=== PATIENT | male | born 1945 | race Caucasian/White ===

== ENCOUNTER 2018-08-08 09:35 | Inpatient (IN) | payer MEDICARE, BC ==
[~2018-08-08] VITALS: Ht 177.8 cm; Wt 68.2 kg
--- NOTE | 2018-08-08 09:40 | NUR ---
RECEIVED A 72 Y/O MALE PT C/O SOB, PT CAME WITH EMS, PT IS ON OWN VENT CPAP, HAS A G-TUBE. PT IS ALERT OX3. UPON ARRIVAL 12 LEAD EKG DONE, CONNECETD TO ECG MONITOR,V/S TAKEN.SEEN BY MD , CODE SEPSIS INTIATED. BLOOD SAMPLES/ CX TAKEN.AND CXRAY DONE.
[2018-08-08] MEDS ORDERED: ACETAMINOPHEN ES 500 MG TABLET GT ONE (09:45)
[2018-08-08] MEDS ORDERED: IV NORMAL SALINE 1000 ML BAG IV ONE (09:45)
--- NOTE | 2018-08-08 09:48 | NUR ---
PT RECEIVED IN ER ON OWN VENT ON BIPAP, PT APPEARS COMFORTABLE, NO RESP. DISTRESS NOTED AT THIS TIME. WILL CONTINUE TO MONITOR.
--- NOTE | 2018-08-08 10:10 | NUR ---
PATIENT REFUSED FC, URINATED USING URINAL, URINE SAMPLE TAKEN.
[2018-08-08] MEDS ORDERED: ELIQUIS (10:11)
[2018-08-08] MEDS ORDERED: ROBINOL (10:11)
[2018-08-08] MEDS ORDERED: PARO25TA16 GT (10:11)
[2018-08-08] MEDS ORDERED: ATOR40TA GT (10:11)
[2018-08-08] MEDS ORDERED: ALLO300T2 GT (10:11)
[2018-08-08] MEDS ORDERED: LORA-259 GT (10:11)
[2018-08-08] MEDS ORDERED: ASPI81TA31 GT (10:11)
[2018-08-08] MEDS ORDERED: LISI10TA5 GT (10:11)
[2018-08-08] MEDS ORDERED: GUAI600T53 GT (10:11)
--- NOTE | 2018-08-08 10:12 | NUR ---
LIST OF MEDS FROM WHO WAS NOT SURE OF SOME MED DOSAGES =- WAITING FOR CAREGIVER INSTEAD.
[2018-08-08] MEDS ORDERED: ACETAMINOPHEN ES 500 MG TABLET ONE (10:17)
[2018-08-08 10:20] LABS: CARBON DIOXIDE 31 mmol/L (21-32); CHLORIDE 102 mmol/L (98-107); CREATININE 0.2 mg/dL (0.6-1.3); GLUCOSE 170 mg/dL (74-106); POTASSIUM 4.4 mmol/L (3.5-5.1); UREA NITROGEN, BLOOD 22 mg/dL (7-18)
[2018-08-08 10:27] LABS: PLATELET COUNT (AUTO) 188 K/uL (152-348); RED BLOOD CELL COUNT(AUTO) 4.63 MIL/uL (4.06-5.63)
[2018-08-08 10:33] LABS: ALANINE AMINOTRANSFERASE 87 U/L (16-63); ALKALINE PHOSPHATASE 249 U/L (50-136); ASPARTATE AMINOTRANSFERASE 37 U/L (15-37); BILIRUBIN,DIRECT 0.2 mg/dL (0.0-0.2); BILIRUBIN,TOTAL 0.6 mg/dL (0.2-1.0); TOTAL PROTEIN, SERUM 7.4 g/dL (6.4-8.2)
[2018-08-08] MEDS ORDERED: APIX2.5T PO (10:33)
[2018-08-08] MEDS ORDERED: FLUT9.9S16 NS (10:33)
[2018-08-08] MEDS ORDERED: GLYC1.5T4 GT (10:33)
[2018-08-08 10:35] LABS: BASOPHILS % (AUTO) 0.1 % (0.0-2.0); EOSINOPHILS % (AUTO) 0.2 % (0.0-7.0); HEMATOCRIT 45.4 % (36.7-47.1); HEMOGLOBIN 15.2 g/dL (12.5-16.3); LYMPHOCYTES # (AUTO) 1.5 K/uL (20.0-40.0); LYMPHOCYTES % (AUTO) 10.1 % (20.5-51.5); MEAN CORPUSCULAR HEMOGLOBIN 32.7 uug (23.8-33.4); MEAN CORPUSCULAR HGB CONC 33 g/dL (32.5-36.3); MONOCYTES # (AUTO) 0.4 K/uL (2.0-10.0); MONOCYTES % (AUTO) 2.9 % (0.0-11.0); NEUTROPHILS # (AUTO) 12.8 K/uL (1.8-8.9); NEUTROPHILS % (AUTO) 86.7 % (38.5-71.5); WHITE BLOOD COUNT (AUTO) 14.8 K/uL (3.6-10.2)
[2018-08-08 10:38] LABS: *BILIRUBIN,URIN NEGATIVE (NEGATIVE); *BLOOD, URINE 1+ (NEGATIVE); *CLARITY,URINE CLOUDY (CLEAR); *COLOR,URINE YELLOW (YELLOW); *KETONES,URINE NEGATIVE (NEGATIVE); *UROBILINOGEN,URINE 0.2 E.U./dl (NORMAL); LEUKOCYTE ESTERASE ,URINE 3+ (NEGATIVE); NITRITE, URINE POSITIVE (NEGATIVE); UGLUCOSE NEGATIVE (NEGATIVE)
[2018-08-08 10:45] LABS: WBC,URINE 50-80 /HPF (0-3)
[2018-08-08] MEDS ORDERED: SWABABLE VALVE TRANSFER SET EA MC ONE (10:52)
[2018-08-08] MEDS ORDERED: IV NORMAL SALINE 0 ML IV ONE (10:52)
[2018-08-08] MEDS ORDERED: IV NORMAL SALINE 250 ML IV ONE (10:53)
[2018-08-08 10:55] LABS: BACTERIA,URINE MODERATE /HPF (NONE SEEN)
[2018-08-08] MEDS ORDERED: IOHEXOL 350 100 ML INFUS..BTL ONE (10:57)
[2018-08-08 10:59] LABS: SQUAMOUS EPITHELIAL CELL,UR NONE SEEN /HPF (NONE SEEN)
--- NOTE | 2018-08-08 11:00 | NUR ---
CONSENT SIGNED FOR CT CHEST ANGIO, PT SENT DOWN TO RADILOGY AND BACK NO COMPLICATIONS, STARTED IV ABX.
[2018-08-08] MEDS ORDERED: CEFTRIAXONE 1 G in IV DEXTROSE 5% 50 ML IV ONE (11:15)
[2018-08-08] MEDS ORDERED: CEFTRIAXONE 1 G VIAL ONE (11:17)
[2018-08-08] MEDS ORDERED: MAGNESIUM HYDROXIDE 30 ML LIQUID UDC PO PRN (12:00)
[2018-08-08] MEDS ORDERED: Z GUARD REMEDY PASTE 57 GM TUBE TOP PRN (12:00)
[2018-08-08] MEDS ORDERED: ONDANSETRON 4 MG/2 ML VIAL IV PRN (12:00)
[2018-08-08] MEDS ORDERED: IPRATROPIUM BROMIDE 0.5 MG/2.5 ML NEBU NEB PRN (12:00)
[2018-08-08] MEDS ORDERED: HYDROCODONE/APAP 5-325MG TABLET PO PRN (12:00)
[2018-08-08] MEDS ORDERED: ENOXAPARIN SODIUM 40 MG/0.4 ML DISP.SYRIN SQ SCH ×2 (12:00→14:15)
[2018-08-08] MEDS ORDERED: ALBUTEROL SULFATE 2.5 MG/3 ML NEBU NEB PRN (12:00)
[2018-08-08] MEDS ORDERED: PAROXETINE HCL 20 MG TABLET PO SCH (12:00)
[2018-08-08] MEDS ORDERED: ACETAMINOPHEN 325 MG TABLET PO PRN (12:00)
[2018-08-08 13:40] VITALS: BP 119/81
[2018-08-08] MEDS ORDERED: HYDROCODONE/APAP 5-325MG TABLET GT PRN (14:09)
[2018-08-08] MEDS ORDERED: GUAIFENESIN SUGAR FREE 100 MG/5 ML UDC GT PRN (14:45)
[2018-08-08] MEDS: ALLOPURINOL 300 MG TABLET GT SCH (14:55)
[2018-08-08] MEDS: ASPIRIN 81 MG TAB.CHEW GT SCH (14:55)
[2018-08-08] MEDS: LISINOPRIL 10 MG TABLET GT SCH (14:56)
[2018-08-08] MEDS: GLUCERNA SHAKE 237 ML CAN GT SCH ×3 (15:30→19:59)
--- NOTE | 2018-08-08 15:30 | NUR ---
PT IS ON HIS OWN PERSONAL RESPERONICS VENTILATOR ON PRESSURE CONTROL WITH AVAP, ON SETTINGS OF Pi 25, RATE 16, AND 21% FIO2. PT IS AWAKE, ALERT AND ABLE TO COMMUNICATE BY COMPUTER ASSISTANCE, FAMILY IS AT BEDSIDE AND IS VERY HESITANT TO USE THE HOSPITALS EQUIPMENT DUE TO PT'S COMFORT ON HIS PERSONAL VENTILATOR. NURSING SQUARE DANCE CALLER JAVIER HAS SPOKEN TO THE FAMILY ABOUT THE HOSPITALS POLICY AND PROCEDURES AND FAMILY AGREED TO TRY THE HOSPITALS VENT ON THE SAME SETTINGS OF PERSONAL VENT. ATTEMPTED TO PLACE PT ON A CONDE VENT ON PC, Pi 25, RATE 16, AND 21% FIO2. PT WAS UNCOMFORTABLE ON THE HOSPITALS VENTILATOR. AND REQUESTED TO BE PLACED BACK ON PERSONAL RESPERONICS VENT. PT IS CURRENTLY BACK ON PERSONAL VENTILATOR. PROECTA-GEL PLACED UNDER MASK FOR COMFORT AND SKIN INTEGRITY. NO RESP. DISTRESS NOTED AT THIS TIME. WILL CONTINUE TO MONITOR.
[2018-08-08 15:54] VITALS: BP 124/79
[2018-08-08] MEDS ORDERED: APIXABAN 5 MG TABLET GT SCH (17:00)
--- NOTE | 2018-08-08 17:00 | NUR ---
Pt is awake, alert and oriented. Patient is on the ventilator. RT assessed vent settings as ordered. No signs of acute distress at this time. Patient verbalizes plan of care. Patient communicates with machine. In addition, pt will answer to questions by winking. "yes" is one wink and "no" is two winks. IV access on right wrist patent. Gtube in place, no residual. Condom catheter in place with clear, yellow urine output. Redness on the sacral area. Ordered air mattress and turn patient [id number] for skin integumentary plan. Upper and lower extremities incapable of movement. Safety and comfort measures implemented. Bed in lowest and locked position. Family at the bedside.
[2018-08-08] MEDS: IV NS 1000 ML 1,000 ML IV PRN (17:22)
[2018-08-08] MEDS: PAROXETINE HCL 20 MG TABLET GT SCH (17:22)
--- NOTE | 2018-08-08 18:00 | NUR ---
NOELLE CHECKED OUT PT'S OWN VENT MACHINE AND COMPUTER COMMUNICATION DEVICE USED BY PATIENT. PER dR BANERJEE PT OK TO USE OWN VENT.
[2018-08-08] MEDS: [UNRECOGNIZED DRUG - OTHER] PO SCH (19:53)
--- NOTE | 2018-08-08 20:00 | NUR ---
Pt awake, alert, oriented. Hx ALS. Flaccid all extremities and pt makes needs known by speaking through a home machine with retinal technology. Also indicates YES with one eye blink, and NO with two blinks. Pt also on a CPAP-like [employer] vent machine from home. No apparent acute respiratory distress noted. Excellent O2 sats on 21% FIO2. IVF infusing well at right hand peripheral; condom cath intact and patent, draining well. GTube intact, patent and gets bolus feedings of Glucerna with water flushes as ordered. FNS consult has been requested. Aspiration precautions maintained. Turned/repositioned q 2hr and PRN. Nursing comfort measures observed. Plans of care discussed with pt and at bedside; expressing adequate understanding. Please see PRATIBHA flowsheet for full assessment and clinical data.
[2018-08-08] MEDS: ATORVASTATIN 40 MG TABLET GT SCH (20:12)
[2018-08-08 20:34] VITALS: BP 115/70
[2018-08-08] MEDS: LORAZEPAM 1 MG TABLET GT PRN (22:02)
[2018-08-08 23:59] VITALS: BP 121/68
--- NOTE | 2018-08-09 | NUR ---
PT RECEIVED ON HIS OWN PERSONAL RESPERONICS VENTILATOR ON PRESSURE CONTROL WITH AVAP, ON SETTINGS OF Pi 25, RATE 16, AND 21% FIO2. PT IS AWAKE, ALERT AND ABLE TO COMMUNICATE BY COMPUTER ASSISTANCE. CONTINUOUS PULSE OXIMETER AT BEDSIDE. SPO2 98%, HR 101. NO SIGNS OF RESPIRATORY DISTRESS NOTED AT THIS TIME. PATIENT STATES HE IS COMFORTABLE AT THIS TIME. WILL CONTINUE TO MONITOR THROUGHOUT SHIFT.
[2018-08-09 04:00] VITALS: BP 126/76
--- NOTE | 2018-08-09 06:00 | NUR ---
Stable night, able to sleep well. Please see PRAT[facility] flowsheet for trends and clinical data.
[2018-08-09 06:13] LABS: BASOPHILS % (AUTO) 0.3 % (0.0-2.0); EOSINOPHILS % (AUTO) 0.4 % (0.0-7.0); HEMATOCRIT 37.2 % (36.7-47.1); HEMOGLOBIN 12.5 g/dL (12.5-16.3); LYMPHOCYTES # (AUTO) 2.1 K/uL (20.0-40.0); MEAN CORPUSCULAR HEMOGLOBIN 32.7 uug (23.8-33.4); MEAN CORPUSCULAR HGB CONC 34 g/dL (32.5-36.3); MEAN CORPUSCULAR VOLUME 97.4 fL (73.0-96.2); MONOCYTES # (AUTO) 0.5 K/uL (2.0-10.0); MONOCYTES % (AUTO) 5.9 % (0.0-11.0); NEUTROPHILS # (AUTO) 5.4 K/uL (1.8-8.9); NEUTROPHILS % (AUTO) 67.4 % (38.5-71.5); PLATELET COUNT (AUTO) 142 K/uL (152-348); RED BLOOD CELL COUNT(AUTO) 3.82 MIL/uL (4.06-5.63)
[2018-08-09 06:25] LABS: CARBON DIOXIDE 28 mmol/L (21-32); CHLORIDE 107 mmol/L (98-107); CHOLESTEROL 100 mg/dL (<200); GLUCOSE 73 mg/dL (74-106); HDL CHOLESTEROL 38 mg/dL (40-60); MAGNESIUM 1.7 mg/dL (1.8-2.4); PHOSPHOROUS 3.1 mg/dL (2.5-4.9); POTASSIUM 3.7 mmol/L (3.5-5.1); TRIGLYCERIDES 63 MG/DL (30-150); UREA NITROGEN, BLOOD 19 mg/dL (7-18)
[2018-08-09 06:32] LABS: CREATININE 0.2 mg/dL (0.6-1.3)
[2018-08-09 06:33] LABS: THYROID STIMULATING HORMONE 1.441 mIU/mL (0.358-3.740)
[2018-08-09] MEDS: IV NS 1000 ML 1,000 ML IV PRN (06:53)
--- NOTE | 2018-08-09 07:54 | NUR ---
PT RECEIVED ON HIS OWN PERSONAL RESPERONICS VENTILATOR ON PRESSURE CONTROL WITH AVAP, ON SETTINGS OF Pi 25, RATE 16, AND 21% FIO2. PT IS AWAKE, ALERT. CONTINUOUS PULSE OXIMETER AT BEDSIDE. SPO2 98%, HR 82. NO SIGNS OF RESPIRATORY DISTRESS NOTED AT THIS TIME. WILL CONTINUE TO MONITOR THROUGHOUT SHIFT.
--- NOTE | 2018-08-09 08:00 | NUR ---
PATIENT IS STABLE, FAMILY AND CAREGIVER AT BEDSIDE
[2018-08-09] MEDS: ASPIRIN 81 MG TAB.CHEW GT SCH (08:44)
[2018-08-09] MEDS: ALLOPURINOL 300 MG TABLET GT SCH (08:44)
[2018-08-09] MEDS: PAROXETINE HCL 20 MG TABLET GT SCH ×2 (08:45→16:49)
[2018-08-09] MEDS: GLUCERNA SHAKE 237 ML CAN GT SCH ×3 (08:47→18:17)
[2018-08-09] MEDS: LISINOPRIL 10 MG TABLET GT SCH (08:49)
[2018-08-09] MEDS: [UNRECOGNIZED DRUG - OTHER] PO SCH ×2 (08:51→16:55)
[2018-08-09] MEDS ORDERED: GUAIFENESIN LA 600 MG TABLET.SA PO SCH ×2 (09:00)
[2018-08-09] MEDS ORDERED: MAGNESIUM SULFATE/D5W 100 ML IV SCH (11:30)
[2018-08-09] MEDS: CEFTRIAXONE 1 G in IV DEXTROSE 5% 50 ML IV SCH (11:34)
[2018-08-09 12:28] VITALS: BP 112/69
[2018-08-09] MEDS ORDERED: MAGNESIUM SULFATE 1 GM in IV DEXTROSE 5% 50 ML IV ONE (12:30)
[2018-08-09] MEDS ORDERED: PARO-142 GT (16:02)
[2018-08-09] MEDS ORDERED: GUAI100S9 GT (16:04)
[2018-08-09 16:22] VITALS: BP 129/68
--- NOTE | 2018-08-09 19:25 | NUR ---
Pt received on his own personal ventilator. Pt is on continuous pulse-oximetry. SpO2-97% No signs or symptoms of respiratory distress noted. Will continue to monitor throughout shift.
--- NOTE | 2018-08-09 19:49 | NUR ---
AWAKE, ALERT NON VERBAL, RESPONDS WITH BLINKING EYES. NO S/S OF DISTRESS OR PAIN ON ASSESSMENT. SAFETY MEASURES IN PLACE, FAMILY AT BEDSIDE
[2018-08-09 20:00] VITALS: BP 158/83
[2018-08-09] MEDS: LORAZEPAM 1 MG TABLET GT PRN (20:55)
[2018-08-09] MEDS: ATORVASTATIN 40 MG TABLET GT SCH (21:00)
[2018-08-10] VITALS: BP 128/75
--- NOTE | 2018-08-10 01:00 | NUR ---
PATIENT WAS SEEN BY THE DOCTOR ANU , D/C INSTRUCTIONS, EDUCATION GIVEN, D/C CARE WAS DONE, PATIENT D/C TO HOME, ACCOMPANIED BY DAUGHTER AND PUBLIC HEALTH MICROBIOLOGIST Addendum: 08/10/18 at 1446 by BAILEE CARLSON RN SHE WAS NOT DAUGHTER
[2018-08-10] MEDS: IV NS 1000 ML 1,000 ML IV PRN (02:26)
[2018-08-10 04:00] VITALS: BP 113/68
--- NOTE | 2018-08-10 06:29 | NUR ---
PATIENT SLEPT WELL THROUGHOUT THE SHIFT. NO ACUTE DISTRESS OR C/O PAIN ON THIS SHIFT. ATIVAN PRN X1 GIVEN WITH EFFECT. NO FEVER ON THIS SHIFT, V/S STABLE. NO SIGNIFICANT CHANGES IN STATUS
[2018-08-10 06:30] LABS: BASOPHILS % (AUTO) 0.3 % (0.0-2.0); EOSINOPHILS # (AUTO) 0.1 K/uL (0.0-0.7); EOSINOPHILS % (AUTO) 0.7 % (0.0-7.0); HEMATOCRIT 39.5 % (36.7-47.1); HEMOGLOBIN 13.3 g/dL (12.5-16.3); LYMPHOCYTES # (AUTO) 1.8 K/uL (20.0-40.0); LYMPHOCYTES % (AUTO) 24.1 % (20.5-51.5); MEAN CORPUSCULAR HEMOGLOBIN 32.8 uug (23.8-33.4); MEAN CORPUSCULAR HGB CONC 34 g/dL (32.5-36.3); MEAN CORPUSCULAR VOLUME 97.6 fL (73.0-96.2); MONOCYTES # (AUTO) 0.4 K/uL (2.0-10.0); MONOCYTES % (AUTO) 5.4 % (0.0-11.0); NEUTROPHILS # (AUTO) 5.1 K/uL (1.8-8.9); NEUTROPHILS % (AUTO) 69.5 % (38.5-71.5); PLATELET COUNT (AUTO) 129 K/uL (152-348); RED BLOOD CELL COUNT(AUTO) 4.05 MIL/uL (4.06-5.63); WHITE BLOOD COUNT (AUTO) 7.3 K/uL (3.6-10.2)
--- NOTE | 2018-08-10 07:05 | NUR ---
PATIENT WAS COMFORTABLY RESTING, NO SIGNS OF DISTRESS, FAMILY AT BEDSIDE,
[2018-08-10 07:40] VITALS: BP 140/78
[2018-08-10 08:09] LABS: ALANINE AMINOTRANSFERASE 63 U/L (16-63); ALKALINE PHOSPHATASE 181 U/L (50-136); ASPARTATE AMINOTRANSFERASE 36 U/L (15-37); BILIRUBIN,TOTAL 0.4 mg/dL (0.2-1.0); CARBON DIOXIDE 25 mmol/L (21-32); CHLORIDE 106 mmol/L (98-107); CREATININE 0.2 mg/dL (0.6-1.3); GLUCOSE 66 mg/dL (74-106); MAGNESIUM 1.8 mg/dL (1.8-2.4); PHOSPHOROUS 3.3 mg/dL (2.5-4.9); POTASSIUM 3.6 mmol/L (3.5-5.1); TOTAL PROTEIN, SERUM 5.6 g/dL (6.4-8.2); UREA NITROGEN, BLOOD 13 mg/dL (7-18)
[2018-08-10] MEDS ORDERED: PROTEIN SUPPLEMENT (PROSTAT) 30 ML LIQUID PO SCH (09:00)
--- NOTE | 2018-08-10 09:00 | NUR ---
PATIENT AND DAUGHTER REFUSED TURNING AND REPOSITIONING PATIENT EVERY 2 HOURS TO PREVENT SKIN BREAKDOWN, PATIENT HAD A BIPAP WHICH IS BROUGHT FROM HOME
[2018-08-10] MEDS: ALLOPURINOL 300 MG TABLET GT SCH (09:32)
[2018-08-10] MEDS: LISINOPRIL 10 MG TABLET GT SCH (09:33)
[2018-08-10] MEDS: ASPIRIN 81 MG TAB.CHEW GT SCH (09:34)
[2018-08-10] MEDS: PAROXETINE HCL 20 MG TABLET GT SCH (09:34)
[2018-08-10] MEDS: GLUCERNA SHAKE 237 ML CAN GT SCH (09:35)
[2018-08-10] MEDS: [UNRECOGNIZED DRUG - OTHER] PO SCH (11:07)
[2018-08-10] MEDS: CEFTRIAXONE 1 G in IV DEXTROSE 5% 50 ML IV SCH (11:08)
[2018-08-10] MEDS ORDERED: ATOR10TA GT (11:34)
[2018-08-10] MEDS ORDERED: SULF1TAB48 PO (11:34)
[2018-08-10 12:00] VITALS: BP 129/77
[2018-08-10 15:12] VITALS: BP 106/46
== END 2018-08-10 13:40 | disposition home health service (06) | DRG 872 ==
LOC: ER 09:35 → TELE3 12:53 → TELE-TD3 15:53
DX: A41.9 Sepsis, unspecified organism (principal); E44.1 Mild protein-calorie malnutrition; N39.0 Urinary tract infection, site not specified; J96.11 Chronic respiratory failure with hypoxia; Z99.11 Dependence on respirator [ventilator] status; J90 Pleural effusion, not elsewhere classified; G12.21 Amyotrophic lateral sclerosis; J98.11 Atelectasis; D68.59 Other primary thrombophilia; E87.1 Hypo-osmolality and hyponatremia; J96.12 Chronic respiratory failure with hypercapnia; Z66 Do not resuscitate; R13.10 Dysphagia, unspecified; Z93.1 Gastrostomy status; Z86.73 Personal history of transient ischemic attack (TIA), and cerebral infarction without residual deficits; Z86.718 Personal history of other venous thrombosis and embolism; Z74.01 Bed confinement status; I70.0 Atherosclerosis of aorta; D64.9 Anemia, unspecified; E11.9 Type 2 diabetes mellitus without complications; E86.0 Dehydration; I10 Essential (primary) hypertension; Z79.899 Other long term (current) drug therapy; E78.5 Hyperlipidemia, unspecified; R91.8 Other nonspecific abnormal finding of lung field
CPT/HCPCS: 36415; 70030-TC; 71045; 71275; 83605; 83735; 84100; 84443; 85025; 85730; 87040; 87077; 87086; 87400; 93005; 94002; A4663; A9150; C1758; G0378; J0696; J3475; J7030; J7050; J7060; Q9967